=== PATIENT | female | born 1955 | race Caucasian/White ===

== ENCOUNTER 2020-07-22 12:46 | Outpatient (CLI) | payer OTHER | END 2020-07-22 17:56 | disposition home or self-care (01) | LOC: OFIC 805 12:46 | PROVIDERS: ATTEND Otolaryngology Otology & Neurotology | DX: J31.0 Chronic rhinitis (principal); R09.82 Postnasal drip; R49.0 Dysphonia ==

== ENCOUNTER 2021-02-11 08:00 | Outpatient (CLI) | payer OTHER | END 2021-02-11 08:30 | disposition home or self-care (01) | LOC: PPH VACUNA 08:00 | PROVIDERS: ATTEND Emergency Medicine Pediatric Emergency Medicine | DX: Z23 Encounter for immunization (principal) ==

== ENCOUNTER 2023-01-10 11:46 | Emergency (ER) | payer OTHER ==
[~2023-01-10] VITALS: Ht 162.6 cm; Wt 67.1 kg
[~2023-01-10 11:46] MED LIST: ALLEGRA-D 12 H1 EACH PO
== END 2023-01-10 18:38 | disposition designated cancer center or children's hospital (05) ==
LOC: ER 11:46
PROVIDERS: General Practice
DX: R07.89 Other chest pain (principal); I10 Essential (primary) hypertension; Z20.822 Contact with and (suspected) exposure to COVID-19; R10.84 Generalized abdominal pain
CPT/HCPCS: 36415; 71046; 93005; 96365; 96372; 99284; J1650; J2765; J3490 ×2